=== PATIENT | female | born 1950 | race African-American/Black ===

== ENCOUNTER 2016-07-31 15:26 | Emergency (ER) | payer OTHER ==
[2016-07-31 15:31] VITALS: BP 157/62; PULSE 70; TEMP 97.8; BMI 33.0
[2016-07-31] MEDS ORDERED: IBUPROFEN 600 MG TABLET (FP) PO ONE (16:43)
[2016-07-31] MEDS ORDERED: IBUPROFEN 400 MG TABLET (FP) PO ONE ×2 (16:49→16:50)
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
== END 2016-07-31 17:55 | disposition home or self-care (01) ==
LOC: JERFT 15:26
DX: S40.012A Contusion of left shoulder, initial encounter (principal); Y04.2XXA Assault by strike against or bumped into by another person, initial encounter; Y93.89 Activity, other specified; Y92.218 Other school as the place of occurrence of the external cause; Y99.0 Civilian activity done for income or pay; Y07.59 Other non-family member, perpetrator of maltreatment and neglect; E11.9 Type 2 diabetes mellitus without complications; E78.00 Pure hypercholesterolemia, unspecified; E03.9 Hypothyroidism, unspecified; J45.909 Unspecified asthma, uncomplicated
CPT/HCPCS: 71101-TC; 73030-TC-LT; 99281-25

== ENCOUNTER 2017-02-12 14:50 | Observation (INO) | payer OTHER ==
[2017-02-12 15:04] VITALS: BMI 33.0
--- NOTE | 2017-02-12 15:59 | PDOC ---
History of Present Illness - General Chief Complaint: Chest Pain Stated Complaint: CHEST PAIN Time Seen by Provider: 02/12/17 15:56 History Source: Patient Exam Limitations: No Limitations - History of Present Illness Initial Comments: This is a 66 yo female with h/o asthma, borderline DM, hypothyroidism, and HLD who presents c/o episodic 8/10 sharp left mid-chest pain since last night. She had three episodes yesterday evening which lasted only seconds at a time, and the episodes subsided after she took Tylenol and went to sleep. She awoke pain- free this morning but then had a recurrence this afternoon at 2pm while sitting in a meeting at work. She has never had this pain before. She also notes recent fever, chills, numbness in her fingers and toes, and occasional leg swelling but only when she walks too much. She denies shortness of breath, sweats, palpitations, nausea, vomiting, diarrhea, black/bloody stool, vaginal bleeding, dysuria, vision changes, or recent travel, illness, injury. She does not use estrogen or other hormones, and has no h/o blood clots. Past History - Past Medical History Allergies/Adverse Reactions: Allergies Allergy/AdvReac Type Severity Reaction Status Date / Time No Known Allergies Allergy Verified 02/12/17 15:00 Home Medications: Ambulatory Orders Albuterol 0.083% Nebulizer [place] [Ventolin 0.083% Nebulizer Soln -] 1 amp NEB Q4H PRN #0 amp 08/27/15 Budesonide/Formeterol Fumarate [SYMBICORT 160/4.5mcg -] 2 puff IH BID inhaler 08/27/15 Aspirin [ASA -] 81 mg PO DAILY tab.chew 05/17/16 Levothyroxine [Synthroid -] 50 mcg PO DAILY@0700 tablet 05/17/16 Asthma: Yes Cardiac Disorders: Yes (SOB) Diabetes: Yes Hypercholesterolemia: Yes Seizures: No Thyroid Disease: Yes (HYPO) - Surgical History Abdominal Surgery: Yes Appendectomy: Yes (30 yrs ago) Orthopedic Surgery: Yes (right bunionectomy) - Family Disease History Family Disease History: Diabetes: Grandparents, Mother, Brother - Immunization History Immunization Up to Date: Yes - Psycho/Social/Smoking Cessation Hx Anxiety: No Suicidal Ideation: No Smoking Status: No Smoking History: Never smoked Have you smoked in the past 12 months: No Number of Cigarettes Smoked Daily: 0 If you are a former smoker, when did you quit?: 13 yrs ago Information on smoking cessation initiated: No Hx Alcohol Use: No Drug/Substance Use Hx: No Substance Use Type: None Review of Systems - Review of Systems Able to Perform ROS?: Yes Constitutional: Yes: Chills, Fever. No: Weakness, Unexplained wgt Loss HEENTM: No: Nose Congestion, Throat Pain Respiratory: No: Cough, Shortness of Breath Cardiac (ROS): Yes: Chest Pain (episodic). No: Palpitations, Syncope ABD/GI: No: Constipated, Diarrhea, Nausea, Vomiting : No: Burning, Dysuria Musculoskeletal: No: Back Pain, Neck Pain Integumentary: No: Bruising, Rash Neurological: Yes: Headache (chronic), Numbness (mild, fingers and toes). No: Tingling, Weakness, Dizziness Endocrine: No: Unexplained Weight Gain, Unexplained Weight Loss *Physical Exam - Vital Signs Last Vital Signs Temp Pulse Resp BP Pulse Ox 98 F 78 18 140/80 98 02/13/17 17:23 02/13/17 17:23 02/13/17 20:46 02/13/17 17:23 02/13/17 20:46 - Physical Exam General Appearance: Yes: Nourished, Appropriately Dressed, Obese, Other (well appearing, nontoxic, appears comfortable, answering questions and conversing appropriately). No: Apparent Distress HEENT: positive: EOMI, Normal Voice, Hearing Grossly Normal. negative: Scleral Icterus (R), Scleral Icterus (L), Nasal Congestion Neck: positive: Trachea midline, Supple. negative: Tender, Rigid Respiratory/Chest: positive: Lungs Clear, Normal Breath Sounds. negative: Chest Tender, Respiratory Distress, Crackles, Rhonchi, Stridor, Wheezing Cardiovascular: positive: Regular Rhythm, Regular Rate. negative: Murmur Gastrointestinal/Abdominal: positive: Normal Bowel Sounds, Soft. negative: Tender, Organomegaly, Pulsatile Mass, Guarding Musculoskeletal: positive: Normal Inspection. negative: Decreased Range of Motion, Vertebral Tenderness Extremity: positive: Normal Capillary Refill, Normal Inspection, Normal Range of Motion. negative: Tender, Cyanosis Integumentary: positive: Normal Color, Dry, Warm. 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 negative : EOM Palsy, Facial Droop, Numbness, Sensory Deficit, Confused, Disoriented Heart Score/ECG Review #1 ECG reviewed & interpreted by me at: 15:59 02/12/17 15:59 Sinus rhythm, rate of 63, normal axis and intervals, no ST-T changes, otherwise normal EKG. ED Treatment Course - LABORATORY CBC & Chemistry Diagram: 02/13/17 05:30 02/13/17 05:30 - ADDITIONAL ORDERS Additional order review: 02/12/17 16:45 RBC 4.83 MCV 86.6 MCHC 32.9 RDW 12.9 MPV 8.3 Neutrophils % 37.5 L Lymphocytes % 50.7 H Monocytes % 9.5 Eosinophils % 1.7 Basophils % 0.6 - RADIOLOGY Radiology Studies Ordered: Category Date Time Status CHEST PA & LAT [RAD] Stat Radiology 02/12/17 16:38 Completed CXR without e/o cardiopulmonary processes. - Medications Given in the ED: ED Medications Discontinued Medications Generic Name Dose Route Start Last Admin Trade Name Freq PRN Reason Stop Dose Admin Aspirin 162 mg 02/12/17 16:38 02/12/17 17:30 Asa - PO 02/12/17 16:39 162 mg ONCE ONE Administration Medical Decision Making - Medical Decision Making 66 YOF with h/o asthma, borderline DM, hypothyroidism, and HLD who p/w episodic 8/10 sharp left mid-chest pain since last night. Exam is unremarkable but given the patient's constellation of sxs will do complete cardiac workup. DDX includes ACS (STEMI v. NSTEMI v. angina), PE, aortic dissection, muscle strain/sprain, costochondritis, GERD. Ordered is cardiac order set. Lab work is unremarkable, troponin negative, EKG negative, CXR neg, patient is pain-free in ED. Spoke with Dr. Vargas's partner Ralph Rossi who recommended admission to Telemetry Obs. Dr. Rossi recommends echo, stress test, repeat EKG and troponin in the AM. Pt is admitted to her PCP's team (Dr. Vargas) tele obs. *DC/Admit/Observation/Transfer Diagnosis at time of Disposition: Chest pain Qualifiers: Chest pain type: unspecified Qualified Code(s): R07.9 - Chest pain, unspecified - Discharge Dispostion Condition at time of disposition: Guarded Admit: Yes - Referrals
--- NOTE | 2017-02-12 16:10 | PDOC ---
Attending Attestation - Resident Resident Name: Anna Marie Rodriguez - HPI HPI: 02/12/17 21:09 Pt presents to the ED complaining of intermittent, substernal chest pain. Pain occurs at rest, lasts seconds. - Physicial Exam PE: 02/12/17 21:10 Agree with resident's exam. Patient is well appearing and in no acute distress. - Medical Decision Making 02/12/17 21:11 Pt presents to the ED complaining of chest pain. Pain is atypical, and EKG is normal, but patient has risk factors for cardiac disease, and patient's primary care doctor is requesting that she be admitted for cardiac work up. Will admit to observation.
[2017-02-12] MEDS ORDERED: ASPIRIN 81 MG CHEWABLE TABLETS PO ONE (16:38)
[2017-02-12 17:16] LABS: BASOPHIL 0.6 % (0-2.0); EOSINOPHIL 1.7 % (0-4.5); MCH 28.5 pg (25.7-33.7); MCHC 32.9 g/dl (32.0-36.0); MEAN CELL VOLUME 86.6 fl (80-96); MEAN PLT VOLUME 8.3 fl (7.5-11.1); NEUTROPHILS 37.5 % (42.8-82.8); PLATELET COUNT 197 K/MM3 (134-434); RDW 12.9 % (11.6-15.6); WHITE BLOOD COUNT 5.1 K/mm3 (4.0-10.0)
[2017-02-12] MEDS ORDERED: ASPIRIN 81 MG CHEWABLE TABLETS ONE (17:28)
[2017-02-12 17:29] LABS: INR 1.09 (0.82-1.09)
[2017-02-12 17:46] LABS: ALK PHOS 105 U/L (45-117); ANION GAP 9 (8-16); BILIRUBIN,TOTAL 0.5 mg/dL (0.2-1.0); CALCIUM 9.5 mg/dL (8.5-10.1); CO2 26 mmol/L (21-32); CPK 183 IU/L (26-192); CREATININE 0.6 mg/dL (0.55-1.02); GLUCOSE,RANDOM 83 mg/dL (74-106); MAGNESIUM 2.3 mg/dL (1.8-2.4); SGOT/AST 20 U/L (15-37); SGPT/ALT 25 U/L (12-78); TOT PROT 7.4 g/dl (6.4-8.2)
[2017-02-12 17:48] LABS: TROPONIN I < 0.02 ng/ml (0.00-0.05)
[2017-02-12] MEDS ORDERED: ALBUTEROL SO4 0.083% IH SOL 2.5 MG/3 ML VIAL.NEB. NEB PRN (22:03)
[2017-02-13 06:06] LABS: BASOPHIL 1.4 % (0-2.0); EOSINOPHIL 1.5 % (0-4.5); MCH 28.5 pg (25.7-33.7); MCHC 33.4 g/dl (32.0-36.0); MEAN CELL VOLUME 85.6 fl (80-96); MEAN PLT VOLUME 7.8 fl (7.5-11.1); NEUTROPHILS 40.4 % (42.8-82.8); PLATELET COUNT 165 K/MM3 (134-434); RDW 12.9 % (11.6-15.6); WHITE BLOOD COUNT 5.1 K/mm3 (4.0-10.0)
[2017-02-13 06:31] LABS: ALBUMIN 3.5 g/dl (3.4-5.0); ANION GAP 8 (8-16); BILIRUBIN,TOTAL 0.5 mg/dL (0.2-1.0); CALCIUM 8.4 mg/dL (8.5-10.1); CO2 24 mmol/L (21-32); CREATININE 0.7 mg/dL (0.55-1.02); GLUCOSE,RANDOM 104 mg/dL (74-106); SGOT/AST 15 U/L (15-37); SGPT/ALT 21 U/L (12-78); TOT PROT 6.4 g/dl (6.4-8.2)
[2017-02-13 06:40] LABS: ALK PHOS 90 U/L (45-117); TROPONIN I < 0.02 ng/ml (0.00-0.05)
[2017-02-13] MEDS: INSULIN SLIDING SCALE (NOVOLOG) 1 VIAL SQ SCH ×3 (08:07→17:20)
[2017-02-13] MEDS ORDERED: ASPIRIN 81 MG CHEWABLE TABLETS ONE (08:35)
[2017-02-13] MEDS ORDERED: LEVOTHYROXINE NA 25 MCG TABLET (FP) ONE (08:35)
[2017-02-13] MEDS: LEVOTHYROXINE NA 50 MCG TABLET (FP) PO SCH (08:35)
--- NOTE | 2017-02-13 09:05 | EKG ---
Test Reason : Blood Pressure : / mmHG Vent. Rate : 063 BPM Atrial Rate : 063 BPM P-R Int : 158 ms QRS Dur : 086 ms QT Int : 436 ms P-R-T Axes : 017 034 028 degrees QTc Int : 446 ms NORMAL SINUS RHYTHM NORMAL ECG WHEN COMPARED WITH ECG OF 17-MAY-2016 09:25, NO SIGNIFICANT CHANGE WAS FOUND Confirmed by RADHA SERNA MD ([id number]) on 02/13/2017 9:04:37 AM Referred By: Confirmed By:RADHA SERNA MD
[2017-02-13] MEDS: ASPIRIN 81 MG CHEWABLE TABLETS PO SCH (10:03)
[2017-02-13] MEDS: BUDESONIDE/FORMETEROL FUMARATE 160/4.5 mcg INHALER IH SCH ×2 (10:03→22:16)
[2017-02-13] MEDS ORDERED: ALBUTEROL SO4 0.083% IH SOL 2.5 MG/3 ML VIAL.NEB. NEB ONE (11:09)
--- NOTE | 2017-02-13 12:22 | HP ---
Admitting History and Physical - Primary Care Physician PCP: Gail Vargas - Admission Chief Complaint: Chest Pain History of Present Illness: 66 yrs old F with H/O HTN, borderline T2 DM, aasthma admitted with recurrent Left sided chest pain for past 2 days after sick contact at home her niece has URTI symptoms, 2 days ago experienced low grade fever, started sharp left sided chest pain comes for seconds aggravates while coughing and radiates to back, no associated SOB, Palpitation, nausea, vomiting, patient has an episode of fever c/o mild cough , no expectoration. - Past Medical History Cardiovascular: Yes: Hyperlipdemia Pulmonary: Yes: Asthma Endocrine: Yes: Hypothyroidism - Smoking History Smoking history: Never smoked Have you smoked in the past 12 months: No Aproximately how many cigarettes per day: 0 If you are a former smoker, when did you quit?: 13 yrs ago - Alcohol/Substance Use Hx Alcohol Use: No Home Medications - Allergies Allergies/Adverse Reactions: Allergies Allergy/AdvReac Type Severity Reaction Status Date / Time No Known Allergies Allergy Verified 02/12/17 15:00 - Home Medications Home Medications: Ambulatory Orders Albuterol 0.083% Nebulizer [place] [Ventolin 0.083% Nebulizer Soln -] 1 amp NEB Q4H PRN #0 amp 08/27/15 Budesonide/Formeterol Fumarate [SYMBICORT 160/4.5mcg -] 2 puff IH BID inhaler 08/27/15 Aspirin [ASA -] 81 mg PO DAILY tab.chew 05/17/16 Levothyroxine [Synthroid -] 50 mcg PO DAILY@0700 tablet 05/17/16 Review of Systems - Review of Systems Constitutional: reports: No Symptoms Eyes: reports: No Symptoms HENT: reports: No Symptoms Neck: reports: No Symptoms Cardiovascular: reports: Chest Pain Respiratory: reports: No Symptoms Gastrointestinal: reports: No Symptoms Genitourinary: reports: No Symptoms Musculoskeletal: reports: No Symptoms Physical Examination Vital Signs: Vital Signs Temperature 98.2 F 02/13/17 11:03 Pulse Rate 68 02/13/17 11:03 Respiratory Rate 16 02/13/17 11:03 Blood Pressure 112/60 02/13/17 11:03 O2 Sat by Pulse Oximetry (%) 98 02/13/17 11:03 Elderly F not in distress HEENT: Mm moist, no anemia, PERRLA EOMI NECK: No JVd No Bruit CHEST: tenderness at 4th intercostal space and along Left scapular border, CTA B /L ABD: No distention non tender Bs + EXT: No loretta afeet, no calf tenderness 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 Code(s): R07.9 - CHEST PAIN, UNSPECIFIED Qualifiers: Chest pain type: unspecified Qualified Code(s): R07.9 - Chest pain, unspecified (2) Asthma Assessment/Plan: Stable cont home meds Code(s): J45.909 - UNSPECIFIED ASTHMA, UNCOMPLICATED (3) Hypothyroidism Assessment/Plan: CXont Levothyroxine F/U TSH Code(s): E03.9 - HYPOTHYROIDISM, UNSPECIFIED Qualifiers: Hypothyroidism type: unspecified Qualified Code(s): E03.9 - Hypothyroidism, unspecified
[2017-02-13] MEDS ORDERED: RANITIDINE HCL 150 MG TABLET (FP) ONE (13:11)
[2017-02-13] MEDS: RANITIDINE HCL 150 MG TABLET (FP) PO SCH ×2 (13:13→22:16)
[2017-02-13] MEDS: IBUPROFEN 400 MG TABLET (FP) PO PRN ×2 (17:21→23:20)
--- NOTE | 2017-02-13 18:20 | CONS ---
DATE OF CONSULTATION: 02/13/2017 TIME OF CONSULTATION: 3:30 to 4:20 p.m. REQUESTING PHYSICIAN: Gail Vargas M.D. CARDIOLOGY CONSULTATION LOCATION: Emergency room. HISTORY OF PRESENT ILLNESS: The patient is a 66-year-old -N[place]ien female with history of bronchial asthma, hypothyroidism, diet-controlled diabetes mellitus and hypercholesterolemia. Patient states the last Thursday she was sitting and had a sharp left parasternal chest pain that lasted about 2-3 seconds, radiated to the left arm, and abated spontaneously. Pain recurred 2-3 minutes later, and again had the same intensity and short duration with the same radiation except her hand felt numb. The following day she had multiple episodes of similar chest discomfort, similar radiation, except that she had intermittent numbness of the left arm. In view of her history, she came to the emergency room. There is no history of diaphoresis, nausea, or vomiting. There is no history of lightheadedness, dizziness, presyncope or syncope. Pains have been nonpleuritic. She denies having history of hypertension. There is no history of heart murmur. Patient states that the episodes prior to admission were accompanied by a warm sweat. She does have exertional dyspnea especially walking up an incline for half a block. Has never experienced any chest pain or discomfort. No history of pain involving the jaw or interscapular area. She has had intermittent left ankle swelling. PAST HISTORY: As mentioned in the history of present illness. History of pneumonia on 2 different occasions. SURGICAL HISTORY: Status post appendectomy. SOCIAL HISTORY: She is . Has 1 son, who apparently has kidney disease. Was a smoker, and used to smoke about half a pack of cigarettes per day. She has a social drink, and has 1 large cup of coffee per day. There is no history of drug use. FAMILY HISTORY: Father at age 78 during his sleep. She does not know about his medical history. Mother at age 82 related to pancreatic carcinoma, had diabetes mellitus, COPD, congestive heart failure, and hypertension. Had 1 brother who at age 56 of myocardial infarction. He apparently was told he had an enlarged heart. ALLERGIES: None reported. MEDICATION: 1. Symbicort 160/4.5 mcg, 2 inhalation b.i.d. 2. Albuterol nebulizer 1 ampule q.4 h. p.r.n. 3. Aspirin 81 mg p.o. daily. 4. Levothyroxine 50 mcg p.o. daily. 5. Simvastatin which she has discontinued against medical advice. REVIEW OF SYSTEMS: Constitutional: History of occasional warm night sweats, and states she still gets "hot flashes". She intentionally loss about 10 to 15 pounds. HEENT: History of chronic occasional frontal headaches. No history of diplopia, blurred vision reported. No history of epistaxis, hoarseness, tinnitus, or deafness reported. Cardiovascular: See history of present illness. Respiratory: Recent cough. No history of expectoration. Occasional wheezing. No history of hemoptysis or tuberculosis. Gastrointestinal: No history of nausea, vomiting, melena or hematemesis. History of chronic constipation, has a bowel movement once a week. No history of abdominal discomfort. Central nervous system: No history of lightheadedness, dizziness, presyncope or syncope. No history of seizures or focal weakness. Endocrine: See history of present illness. No history of polyuria, polydipsia. No history of intolerance to cold or warm weather. Genitourinary: No history of dysuria, frequency, or hematuria. Patient is menopausal. Musculoskeletal: History of occasional leg cramps especially during the night. Patient has history of restricted right shoulder movement associated with pain . No other history of arthralgias. Hematological: No history of anemia, bleeding, or ecchymosis. Lymphatics: No history of lymphadenopathy. PHYSICAL EXAMINATION: General: A 66-year-old -[place] female who is obese, there is no pallor, cyanosis, clubbing, or jaundice. Vital signs: Weight is not available. Blood pressure on admission was 154/76 mmHg. Pulse was 65 beats per minute and regular. Respirations were 18 per minute. Neck: Supple. No jugulovenous distention, carotids were equal and upstrokes were normal, no bruits were heard, and no thyromegaly was present. Heart: PMI was in the 5th intercostal space, no heaves or thrills. S1 and S2 were normal. No murmur or gallops or rubs were heard. Lungs: Harsh breath sounds at the bases. Scattered expiratory wheezing. Chest: Normal AP diameter. Expansion was symmetrical. There was a point tenderness between the 4th and 5th intercostal space on palpation, and is similar to the discomfort she has been experiencing. Abdomen: Soft, obese and nontender. No hepatosplenomegaly or palpable masses were felt. No bruits were heard, and bowel sounds were present. Extremities: No calf tenderness or dependent edema, pulses were equal except posterior tibial pulses were not palpated. The right shoulder movement was severely restricted. LABORATORY DATA: WBC count on February 13, 2017, 5100. Hemoglobin 12.8 g. Platelet count 155,000. Neutrophils 40.4, lymphocytes 46.2, monocytes 10.5, with eosinophils at 1.5, basophils 1.4. There was a right shift. ESR was pending. Chemistry: sodium 142, potassium 3.9, chloride 110, CO2 of 24, BUN 10, creatinine 0.7 mg/dL. Hemoglobin A1c 6.2%. Calcium 8.4 mg/dL. CK is not documented. Troponins were less than 0.02. TSH was 3.50. ECG February 12, 2017, sinus rhythm, tracing was within normal limits. Echocardiogram dated February 13, 2017, final conclusion: 1. Suspect small pericardial effusion (best seen on the parasternal long axis view), insufficient subcostal view to confirm. 2. Left ventricular systolic function is normal. 3. Right ventricle is normal in size and function. 4. There is mild mitral regurgitation. 5. There is mild to moderate tricuspid regurgitation. 6. Right ventricular systolic pressure is elevated at 30 to 40 mmHg. 7. Aortic root is normal size. X-ray chest, impression: no acute pathology appreciated. IMPRESSION: 1. Chest pain syndrome, atypical presentation for coronary artery disease, clinical presentation suggestive of pain of musculoskeletal origin. 2. Bronchial asthma. 3. Hypothyroidism, replacement therapy. 4. Exogenous obesity. 5. Restricted right shoulder movement, possibly related to rotator cuff. RECOMMENDATION: 1. Follow up ECG and enzymes. 2. Continue current medications. 3. She could be placed on low-dose beta blockers until a stress test is done. 4. Stress test especially in view of family history and history of hypercholesterolemia. 5. Evaluation of right shoulder pain and restricted motion. 6. She will obtain consult regarding dietary restrictions, encouraged to further weight reduction. I thank you again for your referral. HUAN APARICIO M.D. [id number]
[2017-02-13] MEDS ORDERED: ONDANSETRON 4 MG/2 ML VIAL IVPB PRN (20:20)
[2017-02-13] MEDS ORDERED: morphine CARPU-JECT 2 MG/1 ML DISP.SYRIN IM PRN (20:20)
[2017-02-13 23:55] LABS: CPK 99 IU/L (26-192); TROPONIN I < 0.02 ng/ml (0.00-0.05)
[2017-02-14] MEDS: INSULIN SLIDING SCALE (NOVOLOG) 1 VIAL SQ SCH ×2 (06:28→11:33)
[2017-02-14] MEDS: IBUPROFEN 400 MG TABLET (FP) PO PRN (06:30)
[2017-02-14] MEDS: LEVOTHYROXINE NA 50 MCG TABLET (FP) PO SCH (06:31)
[2017-02-14] MEDS: BUDESONIDE/FORMETEROL FUMARATE 160/4.5 mcg INHALER IH SCH (09:53)
[2017-02-14] MEDS: RANITIDINE HCL 150 MG TABLET (FP) PO SCH (09:53)
[2017-02-14] MEDS: ASPIRIN 81 MG CHEWABLE TABLETS PO SCH (09:53)
[2017-02-14 13:25] VITALS: BP 117/60; PULSE 55; TEMP 98.4
--- NOTE | 2017-02-14 18:43 | DS ---
Physical Examination Vital Signs: Vital Signs Temperature 98.4 F 02/14/17 10:00 Pulse Rate 55 L 02/14/17 10:00 Respiratory Rate 20 02/14/17 10:00 Blood Pressure 117/60 02/14/17 10:00 O2 Sat by Pulse Oximetry (%) 99 02/14/17 10:00 Elderly F not in distress HEENT: Mm moist, no anemia, PERRLA EOMI NECK: No JVd No Bruit CHEST: Pain and tenderness improved , CTA B/L ABD: No distention non tender Bs + EXT: No loretta afeet, no calf tenderness OR SCRUB TECH; AOx3 non focal Findings/Remarks: 66 yrs old f with H/O hTN, Asthma and FHO CAD present with chest pain admitted for observation to R/O ACS , ECHO shows pericardial fluid considering acute percardiatis evaluted by cardiology consult, normal serial CE and ECHO, ESR CRP respinded to pain med is being discharge to F/U with Cardiology and PCP . Labs: CBC, BMP 02/13/17 05:30 02/13/17 05:30 CBC,CMP WBC 5.1 K/mm3 (4.0-10.0) 02/13/17 05:30 RBC 4.48 M/mm3 (3.60-5.2) 02/13/17 05:30 Hgb 12.8 GM/dL (10.7-15.3) 02/13/17 05:30 Hct 38.3 % (32.4-45.2) 02/13/17 05:30 MCV 85.6 fl (80-96) 02/13/17 05:30 MCH 28.5 pg (25.7-33.7) 02/13/17 05:30 MCHC 33.4 g/dl (32.0-36.0) 02/13/17 05:30 RDW 12.9 % (11.6-15.6) 02/13/17 05:30 Plt Count 165 K/MM3 (134-434) 02/13/17 05:30 MPV 7.8 fl (7.5-11.1) 02/13/17 05:30 Neutrophils % 40.4 % (42.8-82.8) L 02/13/17 05:30 Lymphocytes % 46.2 % (8-40) H 02/13/17 05:30 Monocytes % 10.5 % (3.8-10.2) H 02/13/17 05:30 Eosinophils % 1.5 % (0-4.5) 02/13/17 05:30 Basophils % 1.4 % (0-2.0) 02/13/17 05:30 ESR 13 mm/hr (0-30) 02/13/17 15:03 Sodium 142 mmol/L (136-145) 02/13/17 05:30 Potassium 3.9 mmol/L (3.5-5.1) 02/13/17 05:30 Chloride 110 mmol/L (98-107) H 02/13/17 05:30 Carbon Dioxide 24 mmol/L (21-32) 02/13/17 05:30 Anion Gap 8 (8-16) 02/13/17 05:30 BUN 10 mg/dL (7-18) 02/13/17 05:30 Creatinine 0.7 mg/dL (0.55-1.02) 02/13/17 05:30 Creat Clearance w eGFR > 60 (>60) 02/13/17 05:30 POC Glucometer 88 UNITS (()) 02/14/17 11:22 Random Glucose 104 mg/dL (74-106) D 02/13/17 05:30 Hemoglobin A1c % 6.2 % (4.8-6.0) H 02/13/17 05:30 Calcium 8.4 mg/dL (8.5-10.1) L 02/13/17 05:30 Magnesium 2.3 mg/dL (1.8-2.4) 02/12/17 17:23 Total Bilirubin 0.5 mg/dL (0.2-1.0) 02/13/17 05:30 AST 15 U/L (15-37) D 02/13/17 05:30 ALT 21 U/L (12-78) 02/13/17 05:30 Alkaline Phosphatase 90 U/L (45-117) 02/13/17 05:30 Creatine Kinase 99 IU/L (26-192) 02/13/17 23:00 Creatine Kinase Index 0.5 % (0.0-5.0) 02/12/17 17:23 CK-MB (CK-2) < 1.000 ng/mL (0.5-3.6) 02/12/17 17:23 Troponin I < 0.02 ng/ml (0.00-0.05) 02/13/17 23:00 C-Reactive Protein < 0.3 MG/DL (0.00-0.3) 02/13/17 15:03 B-Natriuretic Peptide 59.70 pg/ml (5-125) 02/12/17 16:58 Total Protein 6.4 g/dl (6.4-8.2) 02/13/17 05:30 Albumin 3.5 g/dl (3.4-5.0) 02/13/17 05:30 Triglycerides 110 mg/dL (35-160) D 02/12/17 16:58 Cholesterol 234 mg/dL (50-200) H 02/12/17 16:58 Total LDL Cholesterol 159 mg/dL (5-100) H 02/12/17 16:58 HDL Cholesterol 49 mg/dL (40-60) 02/12/17 16:58 Lipase 135 U/L (73-393) 02/12/17 16:58 TSH 3.50 uIU/ml (0.358-3.74) D 02/13/17 05:30 Discharge Summary Reason For Visit: CHEST PAIN Current Active Problems Asthma (Acute) Chest pain (Acute) hypercholasterelemia Br asthma Condition: Good - Instructions Referrals: Gail Vargas MD [Primary Care Provider] - 1 Week Maagn Medley MD [Staff Physician] - 2 Weeks Disposition: HOME - Home Medications Comprehensive Discharge Medication List: Ambulatory Orders Albuterol 0.083% Nebulizer [place] [Ventolin 0.083% Nebulizer Soln -] 1 amp NEB Q4H PRN #0 amp 08/27/15 Budesonide/Formeterol Fumarate [SYMBICORT 160/4.5mcg -] 2 puff IH BID inhaler 08/27/15 Aspirin [ASA -] 81 mg PO DAILY tab.chew 05/17/16 Levothyroxine [Synthroid -] 50 mcg PO DAILY@0700 tablet 05/17/16 Atorvastatin Ca [Lipitor] 20 mg PO HS #30 tablet 02/14/17 Ibuprofen [Motrin -] 400 mg PO Q6H PRN #30 tablet 02/14/17 Oxycodone HCl/Acetaminophen [Percocet 5-325 mg Tablet] 1 tab PO Q6H #20 tablet MDD 4 02/14/17 Ranitidine [Zantac -] 150 mg PO BID #30 tablet 02/14/17
[2017-02-14] MEDS ORDERED: ATORVASTATIN CA 20 MG TABLET (FP) PO SCH (22:00)
== END 2017-02-14 13:49 | disposition home or self-care (01) ==
LOC: JER 14:50 → JERBED 20:54 → UNDOADMOB 23:00 → JERBED 23:00 → J4W 02-13 16:40
PROVIDERS: ADMIT Internal Medicine; ATTEND Internal Medicine
PROC: 3E0F7GC Introduction of Other Therapeutic Substance into Respiratory Tract, Via Natural or Artificial Opening (ICD-10-PCS; principal; 2017-02-12)
PROC: 3E0F7GC Introduction of Other Therapeutic Substance into Respiratory Tract, Via Natural or Artificial Opening (ICD-10-PCS; 2017-02-12)
DX: R07.9 Chest pain, unspecified (principal); I10 Essential (primary) hypertension; E11.9 Type 2 diabetes mellitus without complications; E03.9 Hypothyroidism, unspecified; E78.5 Hyperlipidemia, unspecified; R73.03 Prediabetes; J45.909 Unspecified asthma, uncomplicated; Z79.82 Long term (current) use of aspirin
CPT/HCPCS: 36415; 71020-TC; 80053; 80061; 82553; 83036; 83690; 83721; 83735; 83880; 84443; 84484; 85025; 85610; 85651; 86140; 93005; 93010; 93306-TC; 99285-25; G0378

== ENCOUNTER 2017-03-18 16:15 | Emergency (ER) | payer OTHER ==
[2017-03-18 16:26] VITALS: BP 135/68; PULSE 77; TEMP 97.7; BMI 31.4
--- NOTE | 2017-03-18 17:23 | PDOC ---
History of Present Illness - General Chief Complaint: Pain Stated Complaint: PAIN, ACUTE Time Seen by Provider: 03/18/17 17:07 History Source: Patient - History of Present Illness Initial Comments: 03/18/17 17:23 CC: 2 day h/o nausea, vomiting diarrhea and 1 day h/o R flank pain Patient is a 66 y.o. female with a PMH of HLD, DLD and diet controlled Type 2 DM who presents to our ED c/o a 2 day h/o of 10 episodes of (yellowish, no ahsan blood) vomiting, multiple episodes of watery (non bloody, no foul odor) diarrhea as well 1 day h/o R sided non-radiating flank pain. Patient denies any associated fevers, chest pain or shortness of breath and does note that her grandson had nausea/vomiting/diarrhea last week that was self resolving. Past History - Past Medical History Allergies/Adverse Reactions: Allergies Allergy/AdvReac Type Severity Reaction Status Date / Time No Known Allergies Allergy Verified 03/18/17 16:26 Home Medications: Ambulatory Orders Albuterol 0.083% Nebulizer [place] [Ventolin 0.083% Nebulizer Soln -] 1 amp NEB Q4H PRN #0 amp 08/27/15 Budesonide/Formeterol Fumarate [SYMBICORT 160/4.5mcg -] 2 puff IH BID inhaler 08/27/15 Aspirin [ASA -] 81 mg PO DAILY tab.chew 05/17/16 Levothyroxine [Synthroid -] 50 mcg PO DAILY@0700 tablet 05/17/16 Atorvastatin Ca [Lipitor] 20 mg PO HS #30 tablet 02/14/17 Ibuprofen [Motrin -] 400 mg PO Q6H PRN #30 tablet 02/14/17 Oxycodone HCl/Acetaminophen [Percocet 5-325 mg Tablet] 1 tab PO Q6H #20 tablet MDD 4 02/14/17 Ranitidine [Zantac -] 150 mg PO BID #30 tablet 02/14/17 Asthma: Yes Cardiac Disorders: Yes (SOB) Diabetes: Yes Hypercholesterolemia: Yes Seizures: No Thyroid Disease: Yes (HYPO) - Surgical History Abdominal Surgery: Yes Appendectomy: Yes (30 yrs ago) Orthopedic Surgery: Yes (right bunionectomy) - Family Disease History Family Disease History: Diabetes: Grandparents, Mother, Brother - Immunization History Immunization Up to Date: Yes - Suicide/Smoking/Psychosocial Hx Smoking Status: No Smoking History: Former smoker Have you smoked in the past 12 months: No Number of Cigarettes Smoked Daily: 0 If you are a former smoker, when did you quit?: 20 YRS Information on smoking cessation initiated: No Hx Alcohol Use: No Drug/Substance Use Hx: No Substance Use Type: None Review of Systems - Review of Systems Constitutional: No: Chills, Fever HEENTM: No: Blurred Vision, Throat Pain Respiratory: No: Cough, Shortness of Breath Cardiac (ROS): No: Chest Pain, Irregular Heart Rate, Lightheadedness, Palpitations ABD/GI: Yes: Diarrhea, Nausea, Vomiting. No: Constipated : No: Burning, Dysuria All Other Systems: Reviewed and Negative *Physical Exam - Vital Signs Last Vital Signs Temp Pulse Resp BP Pulse Ox 97.7 F 77 20 135/68 98 03/18/17 16:22 03/18/17 16:22 03/18/17 16:22 03/18/17 16:22 03/18/17 16:22 - Physical Exam General Appearance: Yes: Nourished, Appropriately Dressed Neck: positive: Trachea midline, Supple Respiratory/Chest: positive: Lungs Clear, Normal Breath Sounds Cardiovascular: positive: Regular Rhythm, Regular Rate, S1, S2 Gastrointestinal/Abdominal: positive: Normal Bowel Sounds, Tender (R sided flank TTP; no CVA tenderness) Integumentary: positive: Normal Color, Dry, Warm Neurologic: positive: Fully Oriented, Alert ED Treatment Course - LABORATORY CBC & Chemistry Diagram: 03/18/17 17:30 03/18/17 17:30 Medical Decision Making - Medical Decision Making 03/19/17 07:05 Patient is a 66 y.o. female who presents for 2 day h/o of N/V/D as well as 1 day h/o R flank pain. Initial DDX includes bilary tract disease (colic vs. cholelithiasis) vs. viral gastroenteritis. PLAN: 1. UA 2. CBC, CMP 3. Lipase Bedside U/S shows no cholelithiasis, no hydronephrosis and no appreciable renal calculi. Patient symptompatically improved following 2 L IVNS and Zofran. Patient tolerating PO intake at time of discharge. *DC/Admit/Observation/Transfer Diagnosis at time of Disposition: Nausea & vomiting - Discharge Dispostion Disposition: HOME Condition at time of disposition: Good Admit: No - Referrals Referrals: Gail Vargas MD [Primary Care Provider] - - Patient Instructions Additional Instructions: Please return to the Emergency Department should your symptoms worsen. Please follow up with your PCP in the next 3-5 days.
[2017-03-18 17:35] LABS: URINE APPEARANCE SLCLOUDY; URINE BILIRUBIN NEGATIVE (NEGATIVE); URINE BLOOD NEGATIVE (NEGATIVE); URINE COLOR YELLOW; URINE GLUCOSE (UA) NEGATIVE (NEGATIVE); URINE KETONE NEGATIVE (NEGATIVE); URINE LEUK ESTERASE NEGATIVE (NEGATIVE); URINE NITRITE NEGATIVE (NEGATIVE); URINE PROTEIN NEGATIVE (NEGATIVE)
[2017-03-18 17:36] LABS: BASOPHIL 0.8 % (0-2.0); EOSINOPHIL 1.5 % (0-4.5); MCH 28.4 pg (25.7-33.7); MCHC 33.3 g/dl (32.0-36.0); MEAN CELL VOLUME 85.3 fl (80-96); MEAN PLT VOLUME 7.3 fl (7.5-11.1); NEUTROPHILS 35.4 % (42.8-82.8); PLATELET COUNT 183 K/MM3 (134-434); RDW 12.8 % (11.6-15.6); WHITE BLOOD COUNT 3.4 K/mm3 (4.0-10.0)
[2017-03-18] MEDS ORDERED: KETOROLAC TROMETHAMINE 15 MG/ML VIAL IM ONE ×2 (18:01→18:02)
[2017-03-18] MEDS ORDERED: ONDANSETRON 4 MG/2 ML VIAL IVPB ONE (18:03)
[2017-03-18] MEDS ORDERED: SODIUM CHLORIDE 0.9% 1000 ML INFUS.BAG IV ONE (18:03)
[2017-03-18] MEDS ORDERED: ONDANSETRON 4 MG/2 ML VIAL ONE (18:09)
[2017-03-18] MEDS ORDERED: KETOROLAC TROMETHAMINE 15 MG/ML VIAL ONE (18:09)
[2017-03-18 18:14] LABS: ALBUMIN 3.7 g/dl (3.4-5.0); ALK PHOS 95 U/L (45-117); ANION GAP 6 (8-16); BILIRUBIN,TOTAL 0.4 mg/dL (0.2-1.0); CO2 28 mmol/L (21-32); CREATININE 0.7 mg/dL (0.55-1.02); GLUCOSE,RANDOM 88 mg/dL (74-106); SGOT/AST 16 U/L (15-37); SGPT/ALT 20 U/L (12-78); TOT PROT 7.1 g/dl (6.4-8.2)
--- NOTE | 2017-03-18 18:19 | PDOC ---
Attending Attestation - Resident Resident Name: Lauren Cummings - ED Attending Attestation I have performed the following: I have examined & evaluated the patient, The case was reviewed & discussed with the resident, I agree w/resident's findings & plan, Exceptions are as noted - Medical Decision Making 03/18/17 18:18 a/p: 66yo female with n/v/d yesterday now with R flank pain -no hematuria -poss viral gastroenteritis, had dry heaving poss pulled muslce -bedside ultrasound negative for acute kenan or hydro b/l -labs -if +hematuria will do ct scan 03/18/17 18:19 I, Dr. Alison Fan, DO, attest that this document has been prepared under my direction and personally reviewed by me in its entirety. I further attest, that it accurately reflects all work, treatment, procedures and medical decision -making performed by me. 03/18/17 18:39 discussed all lab results with the patient. No hematuria. No leukocytosis. No renal failure or elevated LFT. No elevated lipase. Pt eating grilled cheese at the bedside. Pt stable for d/c to home after the IVF hydration. Pt states she follows with DR. Vargas. Will call him for followup. Answered all quesitons. Abd pain/flank pain is worse with movement and stretching the R side. Requests work note for tomorrow. <Alison Fan - Last Filed: 03/18/17 18:39> - HPI HPI: 03/18/17 18:42 Patient is a 66 year old female with a significant past medical history of HTN, borderline T2 DM, Asthma who presents to the ED with complaints of nausea that began last night at 3am. Patient reports sudden onset of nausea last night at 3am while at home. She reports chronic vomiting x10 secondary to nausea. Patient reports one episode of diarrhea this morning secondary to nausea. She states she began to feel right sided flank pain this afternoon but states She doesn't know if they are related. Denies fever, chills. Denies out of state travel, contact with sick individuals. Denies chest pain, SOB. Denies any other symptoms. Allergies: None Social history: Former smoker (20 years), No alcohol. No illicit drugs. Surgical history: None PMD: Dr. Vargas. - Physicial Exam PE: 03/18/17 18:42 GENERAL: Awake, alert, and fully oriented, in no acute distress HEAD: No signs of trauma EYES: PERRLA, EOMI, sclera anicteric, conjunctiva clear ENT: Auricles normal inspection, hearing grossly normal, nares patent, oropharynx clear without exudates. Moist mucosa NECK: Normal ROM, supple, no lymphadenopathy, JVD, or masses LUNGS: Breath sounds equal, clear to auscultation bilaterally. No wheezes, and no crackles HEART: Regular rate and rhythm, normal S1 and S2, no murmurs, rubs or gallops ABDOMEN: Soft, nontender, normoactive bowel sounds. No guarding, no rebound. No masses MUSCULOSKELETAL: +Mild CVA right sided tenderness. +Right mid flank tenderness. EXTREMITIES: Normal range of motion, no edema. No clubbing or cyanosis. No cords, erythema, or tenderness NEUROLOGICAL: Cranial nerves II through XII grossly intact. Normal speech, normal gait SKIN: Warm, Dry, normal turgor, no rashes or lesions noted. - Medical Decision Making 03/18/17 18:43 Documentation prepared by Melquiades Kumari, acting as medical csr for Alison Fan DO. <Melquiades Kumari - Last Filed: 03/18/17 18:43>
== END 2017-03-18 18:54 | disposition home or self-care (01) ==
LOC: JER 16:15
PROC: 3E0233Z Introduction of Anti-inflammatory into Muscle, Percutaneous Approach (ICD-10-PCS; principal; 2017-03-18)
PROC: 3E033GC Introduction of Other Therapeutic Substance into Peripheral Vein, Percutaneous Approach (ICD-10-PCS; 2017-03-18)
DX: R19.8 Other specified symptoms and signs involving the digestive system and abdomen (principal); R11.2 Nausea with vomiting, unspecified; I10 Essential (primary) hypertension; E11.9 Type 2 diabetes mellitus without complications; E78.00 Pure hypercholesterolemia, unspecified; E03.9 Hypothyroidism, unspecified
CPT/HCPCS: 36415; 80053; 81003; 83690; 85025; 96372; 96374; 99283-25

== ENCOUNTER 2018-01-21 10:15 | Emergency (ER) | payer OTHER ==
[2018-01-21 10:28] VITALS: BP 150/72; PULSE 69; TEMP 98.6; BMI 31.8
[2018-01-21] MEDS ORDERED: NAPROXEN 250 MG TABLET (FP) PO ONE (10:39)
[2018-01-21] MEDS ORDERED: NAPROXEN 250 MG TABLET (FP) ONE (10:43)
--- NOTE | 2018-01-21 11:18 | PDOC ---
History of Present Illness - General Chief Complaint: Pain Stated Complaint: RIGHT SHOULDER PAIN Time Seen by Provider: 01/21/18 10:20 History Source: Patient Exam Limitations: No Limitations - History of Present Illness Initial Comments: 01/21/18 11:01 67 year old left hand dominant female c/ pmh HLD, hypothyroidism presents with right shoulder pain. The patient is a retail aide. She was pushing a box full of books today and subsequently felt right shoulder pain. The patient does have a history of right shoulder pain and limited motion. Since then, she felt a "crunching" noise in her right shoulder and came into the ED. Denies numbness, weakness. Complains of pain in her right shoulder worsened with movements. Past History - Past Medical History Allergies/Adverse Reactions: Allergies Allergy/AdvReac Type Severity Reaction Status Date / Time No Known Allergies Allergy Verified 01/21/18 10:22 Home Medications: Ambulatory Orders Albuterol 0.083% Nebulizer [place] [Ventolin 0.083% Nebulizer Soln -] 1 amp NEB Q4H PRN #0 amp 08/27/15 Levothyroxine [Synthroid -] 50 mcg PO DAILY@0700 tablet 05/17/16 Naproxen 500 mg PO BID PRN #20 tablet 01/21/18 Simvastatin [Zocor] 10 mg PO HS 01/21/18 Asthma: Yes Cardiac Disorders: Yes (SOB) COPD: No Diabetes: Yes Hypercholesterolemia: Yes Seizures: No Thyroid Disease: Yes (HYPO) - Surgical History Abdominal Surgery: Yes Appendectomy: Yes (30 yrs ago) Orthopedic Surgery: Yes (right bunionectomy) - Family Disease History Family Disease History: Diabetes: Grandparents, Mother, Brother - Immunization History Immunization Up to Date: Yes - Suicide/Smoking/Psychosocial Hx Smoking Status: No Smoking History: Former smoker Have you smoked in the past 12 months: No Number of Cigarettes Smoked Daily: 0 If you are a former smoker, when did you quit?: 20 YRS Information on smoking cessation initiated: No Hx Alcohol Use: Yes (RARE) Drug/Substance Use Hx: No Substance Use Type: None Review of Systems - Review of Systems Able to Perform ROS?: Yes Comments:: 01/21/18 11:18 GENERAL/CONSTITUTIONAL: No fever or chills. No weakness. HEAD, EYES, EARS, NOSE AND THROAT: No change in vision. No ear pain or discharge. No sore throat. CARDIOVASCULAR: No chest pain or shortness of breath. RESPIRATORY: No cough, wheezing, or hemoptysis. GASTROINTESTINAL: No nausea, vomiting, diarrhea or constipation. GENITOURINARY: No dysuria, frequency, or change in urination. MUSCULOSKELETAL: + right shoulder pain SKIN: no infection. NEUROLOGIC: No headache, vertigo, loss of consciousness, or change in strength/ sensation. ENDOCRINE: No increased thirst. No abnormal weight change. HEMATOLOGIC/LYMPHATIC: No anemia, easy bleeding, or history of blood clots. ALLERGIC/IMMUNOLOGIC: No hives or skin allergy. 01/21/18 11:20 *Physical Exam - Vital Signs Last Vital Signs Temp Pulse Resp BP Pulse Ox 98.6 F 69 16 150/72 98 01/21/18 10:20 01/21/18 10:20 01/21/18 10:20 01/21/18 10:20 01/21/18 10:20 - Physical Exam Comments: 01/21/18 11:20 GENERAL: Awake, alert, and fully oriented, in no acute distress HEAD: No signs of trauma EYES: EOMI, sclera anicteric, conjunctiva clear ENT: Auricles normal inspection, hearing grossly normal, nares patent NECK: Normal ROM, supple EXTREMITIES: RUE: 2+ radial pulse. Sensation and strength intact throughout the median/radian /ulnar/deltoid nerve distribution. No tenderness elicited to the wrist, hand or elbow or c-spine. Reproducible pain noted with passive movement of right shoulder past 90 degrees on abduction and flexion. Pain also reproduced with active movement. NEUROLOGICAL: Cranial nerves II through XII grossly intact. Normal speech, normal gait SKIN: Warm, Dry, normal turgor, no rashes or lesions noted. ED Treatment Course - RADIOLOGY Radiology Studies Ordered: Category Date Time Status SHOULDER-RIGHT [RAD] Stat Radiology 01/21/18 10:39 Ordered - Medications Given in the ED: ED Medications Discontinued Medications Generic Name Dose Route Start Last Admin Trade Name Freq PRN Reason Stop Dose Admin Naproxen 250 mg 01/21/18 10:39 01/21/18 10:45 Naprosyn - PO 01/21/18 10:40 250 mg ONCE ONE Administration Medical Decision Making - Medical Decision Making 01/21/18 11:22 Vital Signs Temp Pulse Resp BP Pulse Ox 98.6 F 69 16 150/72 98 01/21/18 10:20 01/21/18 10:20 01/21/18 10:20 01/21/18 10:20 01/21/18 10:20 I suspect that the patient likely has shoulder strain or impingement shoulder. NSAIDS, ice, activity as tolerated. Right shoulder radiograph reviewed by me, pending official radiology read. No fracture or dislocation. I advised the patient that if her symptoms persist for more than 10 days to make an appointment with an orthopedist. *DC/Admit/Observation/Transfer Diagnosis at time of Disposition: Shoulder pain, right Qualifiers: Chronicity: unspecified Qualified Code(s): M25.511 - Pain in right shoulder - Discharge Dispostion Disposition: HOME Condition at time of disposition: Stable Decision to Admit order: No - Prescriptions Prescriptions: Naproxen 500 mg PO BID PRN #20 tablet PRN Reason: Shoulder Pain - Referrals Referrals: Gail Vargas MD [Primary Care Provider] - Didier Rogers MD [Staff Physician] - Tristan Perez MD [Staff Physician] - Dillan Gale MD [Staff Physician] - - Patient Instructions Printed Discharge Instructions: DI for Shoulder Pain Additional Instructions: Please take 500 mg naproxen every 12 hours as needed for pain. You may use ice or heat packs several times a day for several minutes at a time. If you have persistent pain for more than 10 days, please make an appointment with an orthopedist. - Post Discharge Activity Forms/Work/School Notes: Back to Work
== END 2018-01-21 12:26 | disposition home or self-care (01) ==
LOC: FER 10:15
DX: M25.511 Pain in right shoulder (principal); X58.XXXA Exposure to other specified factors, initial encounter; Y93.89 Activity, other specified; Y92.219 Unspecified school as the place of occurrence of the external cause; Y99.0 Civilian activity done for income or pay; Z87.891 Personal history of nicotine dependence; E03.9 Hypothyroidism, unspecified; E11.9 Type 2 diabetes mellitus without complications; E78.00 Pure hypercholesterolemia, unspecified
CPT/HCPCS: 73030-TC-RT-FY; 99282-25

== ENCOUNTER → 2018-07-22 | Day surgery (SDC) | payer BC, OTHER ==
--- NOTE | 2018-07-23 15:49 | PATH ---
Surgical Pathology Report Patient Name: CYNTHIA CRUZ [facility]. Rec. #: [id number] /Age/Gender: 1950 (Age: 67) / F Account: [id number] Location: [facility] Taken: 07/22/2018 Received: 07/22/2018 Reported: 07/23/2018 Physicians: Tara Goodwin M.D. Specimen(s) Received A: RIGHT BREAST SPECIMEN WITH CALCIFICATIONS B: RIGH BREAST SPECIMEN WITHOUT CALCIFICATIONS Clinical History Nonpalpable lesion Mammographic findings: Suspicious Final Diagnosis A. BREAST, RIGHT, WITH CALCIFICATIONS, STEREOTACTIC BIOPSY: BENIGN BREAST TISSUE SHOWING FIBROADENOMA WITH ASSOCIATED CALCIFICATIONS. SMALL BENIGN INTRAMAMMARY LYMPH NODE WITH EPITHELIAL INCLUSIONS/HETEROTOPIC GLANDULAR TISSUE. (SEE NOTE). Note: Immunohistochemical studies performed at [facility] show the following results: the epithelial/glandular inclusions within the lymph node are positive for AE 1/3; SMM-HC and p63 immunostains demonstrate the presence of myoepithelial cells at the periphery of the epithelial/ glandular inclusions. These findings support the diagnosis. B. BREAST, RIGHT, WITHOUT CALCIFICATIONS, STEREOTACTIC BIOPSY: BENIGN BREAST TISSUE SHOWING FRAGMENTS OF FIBROADENOMA. Electronically Signed Enedelia Olmedo M.D. Gross Description A. Received in formalin labeled "right breast with calcification," is a 2.0 x 1.1 x 0.3 cm aggregate of multiple ellison-yellow, irregular to cylindrical portions of fibroadipose tissue. The formalin is filtered and the specimen is entirely submitted in one cassette. B. Received in formalin labeled "right breast without calcifications," is a 2.5 x 2.0 x 0.3 cm aggregate of multiple ellison-yellow, irregular to cylindrical portions of fibroadipose tissue. The formalin is filtered and the specimen is entirely submitted in one cassette. Time to formalin fixation: 5 minutes Total formalin fixation time: Approximately 8 hours. 07/22/201807/22/2018
== END | disposition home or self-care (01) ==
LOC: FMAMMOTONE 08:35
PROVIDERS: ATTEND Internal Medicine
PROC: 0HBT3ZX Excision of Right Breast, Percutaneous Approach, Diagnostic (ICD-10-PCS; principal; 2018-07-22)
DX: D24.1 Benign neoplasm of right breast (principal); R92.1 Mammographic calcification found on diagnostic imaging of breast
CPT/HCPCS: 19081; 88305-TC; 88341-TC; 88342-TC

== ENCOUNTER 2018-10-07 13:56 | Emergency (ER) | payer OTHER, BC ==
[2018-10-07 14:01] VITALS: BP 163/59; PULSE 78; TEMP 97.8; BMI 31.1
[2018-10-07] MEDS ORDERED: IBUPROFEN 400 MG TABLET (FP) PO ONE ×2 (14:28→14:34)
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
== END 2018-10-07 15:46 | disposition home or self-care (01) ==
LOC: JERFT 13:56
DX: S63.501A Unspecified sprain of right wrist, initial encounter (principal); W18.09XA Striking against other object with subsequent fall, initial encounter; Y93.89 Activity, other specified; Y92.119 Unspecified place in children's home and orphanage as the place of occurrence of the external cause; Y99.0 Civilian activity done for income or pay; E11.9 Type 2 diabetes mellitus without complications; E78.00 Pure hypercholesterolemia, unspecified; E03.9 Hypothyroidism, unspecified
CPT/HCPCS: 73110-TC-RT-FY; 99281-25

== ENCOUNTER 2020-12-21 23:44 | Emergency (ER) | payer BC, OTHER ==
[2020-12-22] MEDS ORDERED: ACETAMINOPHEN 325 MG TABLET (FP) PO ONE (00:17)
[2020-12-22] MEDS ORDERED: ACETAMINOPHEN 325 MG TABLET (FP) ONE (00:25)
[2020-12-22 03:08] VITALS: BP 148/75; PULSE 75; TEMP 98.2; BMI 33.0
== END 2020-12-22 01:51 | disposition home or self-care (01) ==
LOC: JER 23:44
DX: M25.512 Pain in left shoulder (principal)
CPT/HCPCS: 71046-TC-FY; 73030-TC-LT-FY; 99285-25

== ENCOUNTER 2021-06-28 12:43 | Emergency (ER) | payer OTHER ==
[2021-06-28 12:58] VITALS: BP 148/76; PULSE 78; TEMP 97.8; BMI 31.6
[2021-06-28] MEDS ORDERED: KETOROLAC TROMETHAMINE 30 MG/1 ML VIAL IM ONE (13:29)
[2021-06-28] MEDS ORDERED: diazePAM 2 MG TABLET PO ONE (13:29)
[2021-06-28] MEDS ORDERED: KETOROLAC TROMETHAMINE 30 MG/1 ML VIAL ONE (13:46)
[2021-06-28] MEDS ORDERED: diazePAM 2 MG TABLET ONE (13:46)
== END 2021-06-28 14:05 | disposition home or self-care (01) ==
LOC: FER 12:43
PROC: 3E0233Z Introduction of Anti-inflammatory into Muscle, Percutaneous Approach (ICD-10-PCS; principal; 2021-06-28)
DX: M54.9 Dorsalgia, unspecified (principal)
CPT/HCPCS: 99283-25

== ENCOUNTER 2022-10-08 16:12 | Emergency (ER) | payer OTHER ==
[2022-10-08 16:19] VITALS: BMI 32.3
[2022-10-08] MEDS ORDERED: LIDOCAINE 5% TOPICAL PATCH TP ONE (16:43)
[2022-10-08] MEDS ORDERED: KETOROLAC TROMETHAMINE 30 MG/1 ML VIAL IM ONE (16:43)
[2022-10-08] MEDS ORDERED: METHOCARBAMOL 500 MG TABLET PO ONE (16:43)
[2022-10-08] MEDS ORDERED: KETOROLAC TROMETHAMINE 30 MG/1 ML VIAL ONE ×2 (16:55→16:59)
[2022-10-08] MEDS ORDERED: METHOCARBAMOL 500 MG TABLET ONE ×2 (16:55→16:59)
[2022-10-08] MEDS ORDERED: LIDOCAINE 5% TOPICAL PATCH ONE ×2 (16:55→16:59)
[2022-10-08 18:18] VITALS: BP 165/71; PULSE 60; RESP 20; TEMP 97.3
== END 2022-10-08 18:19 | disposition home or self-care (01) ==
LOC: JER 16:12
PROC: 3E0233Z Introduction of Anti-inflammatory into Muscle, Percutaneous Approach (ICD-10-PCS; principal; 2022-10-08)
DX: M54.50 Low back pain, unspecified (principal); R05.9 Cough, unspecified
CPT/HCPCS: 71046-TC-FY; 99284-25

== ENCOUNTER 2023-01-07 18:46 | Emergency (ER) | payer OTHER ==
[2023-01-07 19:08] VITALS: BP 187/66; PULSE 63; RESP 17; TEMP 97.7; BMI 31.8
== END 2023-01-07 20:14 | disposition home or self-care (01) ==
LOC: JERFT 18:46
DX: S13.4XXA Sprain of ligaments of cervical spine, initial encounter (principal); M54.2 Cervicalgia; V49.50XA Passenger injured in collision with unspecified motor vehicles in traffic accident, initial encounter; Y92.830 Public park as the place of occurrence of the external cause
CPT/HCPCS: 99282-25